=== PATIENT | male | born 1935 | race African-American/Black ===

== ENCOUNTER 2021-05-18 14:29 | Emergency (ER) | payer MEDICARE ==
[~2021-05-18] VITALS: Ht 175.3 cm; Wt 77.1 kg
[2021-05-18 14:48] VITALS: BP_SYST 151
[2021-05-18 15:48] LABS: BASOPHILS % (AUTO) 0.9 % (0.0-2.0); EOSINOPHILS # (AUTO) 0.3 K/uL (0.0-0.4); EOSINOPHILS % (AUTO) 6.6 % (0.0-4.0); HEMATOCRIT 36.9 % (36-54); HEMOGLOBIN 12.1 g/dL (14.0-18.0); LYMPHOCYTES # (AUTO) 1.4 K/uL (1.0-5.5); LYMPHOCYTES % (AUTO) 33.1 % (20.5-51.5); MEAN CORPUSCULAR HEMOGLOBIN 31 pg (27-31); MEAN CORPUSCULAR HGB CONC 33 % (32-36); MEAN CORPUSCULAR VOLUME 95 fL (79.0-98.0); MONOCYTES # (AUTO) 0.4 K/uL (0.0-1.0); MONOCYTES % (AUTO) 9.7 % (1.7-9.3); NEUTROPHILS # (AUTO) 2.1 K/uL (1.8-7.7); NEUTROPHILS % (AUTO) 49.7 % (40.0-70.0); PLATELET COUNT (AUTO) 147 K/uL (130-430); RED BLOOD CELL COUNT(AUTO) 3.87 MIL/uL (4.2-6.2); RED CELL DISTRIBUTION WIDTH 13.9 % (9.0-15.0); WHITE BLOOD COUNT (AUTO) 4.3 K/uL (4.8-10.8)
[2021-05-18 15:57] LABS: ANION GAP 6 (5-15); CHLORIDE 108 mmol/L (98-107); GLUCOSE 87 mg/dL (70-99); POTASSIUM 3.8 mmol/L (3.5-5.1); SODIUM SERUM 143 mmol/L (136-145)
[2021-05-18 15:58] LABS: CREATININE 1.08 mg/dL (0.55-1.30); UREA NITROGEN, BLOOD 10 mg/dL (8-21); URIC ACID 5.4 mg/dL (2.4-7.0)
[2021-05-18] MEDS ORDERED: NAPR-688 PO (16:34)
[2021-05-18 16:48] VITALS: BP_SYST 151
== END 2021-05-18 16:48 | disposition home or self-care (01) ==
LOC: SED 14:29
DX: M13.871 Other specified arthritis, right ankle and foot (principal); M13.872 Other specified arthritis, left ankle and foot; I10 Essential (primary) hypertension; Z79.899 Other long term (current) drug therapy
CPT/HCPCS: 36415; 80048; 84550; 85025; 99284